=== PATIENT | male | born 1970 | race Two or more races ===

== ENCOUNTER 2019-08-22 15:26 | Emergency (ER) | payer MEDICAID, SELFPAY ==
[~2019-08-22] VITALS: Ht 177.8 cm; Wt 96.5 kg
[2019-08-22 15:28] VITALS: BP 115/75
--- NOTE | 2019-08-22 15:43 | NUR ---
comes in c/o lac to gum r/t potato chip. no lac noted. as
[2019-08-22] MEDS ORDERED: ACETAMINOPHEN 325 MG TABLET PO ONE (16:00)
[2019-08-22] MEDS ORDERED: ACETAMINOPHEN 325 MG TABLET ONE (16:07)
== END 2019-08-22 16:11 | disposition home or self-care (01) ==
LOC: ED 16:05
DX: S00.512A Abrasion of oral cavity, initial encounter (principal); K02.9 Dental caries, unspecified; F17.210 Nicotine dependence, cigarettes, uncomplicated; Z72.9 Problem related to lifestyle, unspecified; X58.XXXA Exposure to other specified factors, initial encounter; Y93.89 Activity, other specified; Y92.89 Other specified places as the place of occurrence of the external cause; Y99.8 Other external cause status
CPT/HCPCS: 99282

== ENCOUNTER 2019-10-14 15:42 | Emergency (ER) | payer MEDICAID ==
[~2019-10-14] VITALS: Ht 177.8 cm; Wt 98.0 kg
[2019-10-14 15:44] VITALS: BP 141/89
--- NOTE | 2019-10-14 16:22 | NUR ---
Patient/Caregiver given discharge instructions and they have confirmed that they understand the instructions. Patient ambulatory with steady gait. PT LEFT WITH ALL PERSONAL BELONGINGS.
== END 2019-10-14 16:24 | disposition home or self-care (01) ==
LOC: ED 16:16
DX: M79.644 Pain in right finger(s) (principal); F17.200 Nicotine dependence, unspecified, uncomplicated
CPT/HCPCS: 82962; 99282